=== PATIENT | male | born 1995 | race Caucasian/White ===

== ENCOUNTER 2017-08-09 02:47 | Emergency (ER) | payer OTHER ==
[~2017-08-09] VITALS: Ht 188 cm; Wt 68.2 kg
[2017-08-09 02:52] VITALS: BP 118/78; PULSE 80; RESP 19; O2SAT 96
[2017-08-09 03:08] VITALS: BP 118/78; PULSE 80; RESP 19; O2SAT 96
--- NOTE | 2017-08-09 03:57 | ED.REPORT ---
HPI-Psychiatric Illness Date of Service Aug 09, 2017 ED Provider: Pedro Pablo Pollack MD The pt is a 22 y/o male with reported hx of depression and bipolar disorder who presents to the ED requesting rehab for polysubstance use. The pt states he has been "self-medicating for depression and bipolar with cocaine, meth and a variety of other recreational drugs". The pt denies IV drug use. He last smoked heroin a week ago. Several years ago, he was at [facility] in [place]. He has not been in any treatment center since. He has never used Suboxone before. Nursing Notes Stated Complaint: MENTAL HEALTH Chief Complaint: Substance Abuse Nursing Notes Reviewed: Yes Allergies: Coded Allergies: No Known Allergies (Unverified , 08/09/17) General Time Seen by MD: 03:19 Chief Complaint Other (requesting rehab) Hx Obtained From: Patient Arrived By: Walk-in Onset Occurred: Just prior to arrival Symptom Duration: Since onset Severity: Current: No pain currently Severity: Maximum: No pain Recent Healthcare: No recent doctor visit Risk-Psychiatric Illness Suicide Risk Stratification Suicide Risk Factors - Adult: : Substance abuse RF Statements: Risk factors reviewed Past Medical History Past Medical History Depression Bipolar disorder Multiple drug use Past Surgical History none reported Smoking History Unknown if Ever Smoker Social History Drug Use: Cocaine, Meth, THC, Other (heroin) Ambulatory Status Independent Review of Systems Reports: requesting rehab for polysubstance use Complete sys rev & neg: except as marked. Physical Exam Initial Vital Signs Vital Signs (First) Date Time Temp Pulse Resp B/P Pulse Ox O2 Delivery O2 Flow Rate FiO2 08/09/17 02:52 80 19 118/78 96 Room Air Initial VS: Reviewed, Vital signs normal Head / Eyes: Atraumatic, Normocephalic Neck: Supple, Non-tender, Full range of motion Respiratory: Breath sounds normal, Clear to auscultation, No respiratory distress Cardiovascular: Regular rate & rhythm, Heart sounds normal, Intact distal pulses Abdomen / GI: Soft, Non-tender, No guarding, No rebound, No distention Extremities: Vascular intact, Neuro intact, No swelling, No tenderness Skin: Warm, Dry, No cyanosis General/Constitutional: Awake, Alert, Cooperative Distress / Hydration: Positive: Distress mild Calm and collected Not in celeste withdrawal. Neurologic: Oriented X3, Speech NL, No motor deficits, No sensory deficits Psychiatric: Affect NL, Mood NL, Not suicidal, Not homicidal, No hallucinations , Cognitive function NL Skin: Atraumatic, Color NL, No rash, Warm, Dry, Intact No track caro Interpretation & Diagnostics Lab Results Interpretation Test 08/09/17 04:15 Hold Urine Received (Received) Re-Eval/Medical Decision Med Decision/Clinical Course 22-year-old male with a vague mental health history presents for substance abuse detox and treatment. He has used multiple substances to attempt to self medicate his mental illness. He is currently detoxing from cocaine and methamphetamine. He has a bed [facility] at 11:00 [facility]. He will be sent with Zyprexa to use for any psychotic symptoms. It is his hope to get into inpatient treatment. There are no opiates in his drug screen today and he describes his opiate use as being very sporadic and doesn't feel that he will have problems with opiate withdrawal. His alcohol level is 0 and he describes his alcohol use is being very sporadic and doesn't feel that he will have problems with alcohol withdrawal either. Re-Evaluation/Progress #1: Time of Eval: 05:03 Re-Evaluation/Progress Note: As per the nurse, the pt is accepted at crisis center but a bed is not available until 11:00. Re-Evaluation/Progress #2: Time of Eval: 05:04 Re-Evaluation/Progress Note: Rechecked pt. Discussed lab results, diagnosis and plan to discharge to crisis. Pt understands and agrees with the plan. F/U instruction and RTER warning given. All questions addressed. Counseled Regarding: Diagnosis, Lab results, Need for follow-up, When/why to return to ED Discharge & Departure Shift Change Sign-Out Patient Care Transferred: Yes Discussed Complaint(s): Yes Laboratory Evaluation: Lab evaluation discussed Impression: Primary Impression: Substance abuse Additional Impression: Stimulant withdrawal )( Condition at Discharge: No danger to self, No danger to others, Clear for drug rehab Disposition: Home Discharge Condition All VS Reviewed: Yes Condition: Stable Patient Instructions: Methamphetamine Abuse (ED) Additional Instructions: [facility] directly [facility] at [facility]00 today. I have included a prescription for Zyprexa if you have problems with agitation or voices or paranoia. [facility] will assist you in further drug treatment, possibly as an inpatient. Care Transferred to: Dr. Dinh Care Transferred at: 06:00 Scribe Attestation Portions of this note were transcribed by Liv Lambert. I,, personally performed the history,physical exam and medical decision-making;I reviewed and confirmed the accuracy of the information in the transcribed note. Signed by Scott Langley. 08/09/17 Pedro Pablo Pollack MD Aug 09, 2017 03:57 Liv Lambert Aug 09, 2017 04:05
[2017-08-09] MEDS ORDERED: OLAN10TA32 PO (06:56)
== END 2017-08-09 10:15 | disposition home or self-care (01) ==
LOC: SED 02:47
DX: F19.10 Other psychoactive substance abuse, uncomplicated (principal); F15.20 Other stimulant dependence, uncomplicated; F31.9 Bipolar disorder, unspecified; F32.9 Major depressive disorder, single episode, unspecified

== ENCOUNTER 2017-08-21 20:43 | Emergency (ER) | payer OTHER ==
[~2017-08-21] VITALS: Ht 185.4 cm; Wt 68.2 kg
[~2017-08-21 20:43] MED LIST: OLAN10TA32 PO
[2017-08-21 20:45] VITALS: BP 116/73; PULSE 79; RESP 16; O2SAT 98
--- NOTE | 2017-08-21 20:58 | ED.REPORT ---
HPI-Psychiatric Illness Date of Service Aug 21, 2017 ED Provider: Esteban Samuel DO Pt is a 22 year old male with a history of depression, bipolar disorder, suicide attempts, and polysubstance use who presents to the ED complaining of intermittent suicidal ideations. Pt feels agitated, and he admits to methamphetamine use. He denies alcohol use. Pt is otherwise asymptomatic, denying chest pain, nausea, vomiting, diarrhea, homicidal ideations, and SOB. Pt presented to the ED on 08/09/17 requesting rehab for polysubstance use. He was diagnosed with substance abuse and stimulant withdrawal. The pt was discharged with plan to proceed to [facility]. Nursing Notes Stated Complaint: SUICIDAL IDEATION Chief Complaint: Psychiatric Complaint Nursing Notes Reviewed: Yes Allergies: Coded Allergies: No Known Allergies (Unverified , 08/09/17) Scheduled Olanzapine ODT (Olanzapine ODT) 10 Mg Tablet 10 MG PO DAILY General Time Seen by MD: 20:58 Chief Complaint Suicidal ideation Hx Obtained From: Patient Arrived By: Walk-in Onset Occurred: Onset unknown Symptom Duration: Since onset Severity: Current: No pain currently Severity: Maximum: No pain Recent Healthcare: Recent doctor visit Similar Sx Previous: Yes Risk-Psychiatric Illness Suicide Risk Stratification Suicide Risk Factors - Adult: : Previous attempt: Substance abuseNo: Alcohol use RF Statements: Risk factors reviewed Past Medical History Past Medical History Depression Bipolar disorder Multiple drug use Frequent suicide attempts Past Surgical History none reported Smoking History Unknown if Ever Smoker Social History Alcohol Use: Denies alcohol use Drug Use: Cocaine, Meth, THC, Other Ambulatory Status Independent Review of Systems Respiratory: Denies: Shortness of breath Cardiovascular: Denies: Chest pain GI: Denies: Nausea, Vomiting Psychiatric: Reports: Agitation, Suicidal ideation, Denies: Homicidal ideation Complete sys rev & neg: except as marked. Physical Exam Initial Vital Signs Vital Signs (First) Date Time Temp Pulse Resp B/P Pulse Ox O2 Delivery O2 Flow Rate FiO2 08/21/17 20:45 79 16 116/73 98 Room Air Initial VS: Reviewed Head / Eyes: Atraumatic, Normocephalic Neck: Supple, Full range of motion Respiratory: Breath sounds normal, Clear to auscultation, No respiratory distress Cardiovascular: Regular rate & rhythm, Heart sounds normal, Intact distal pulses Extremities: Vascular intact, Neuro intact General/Constitutional: Awake, Alert Neurologic: Oriented X3, CN II - XII intact Abnormal Thinking / Perception: Positive: Suicidal, no plan Agitated. Clenched his fist and looked me in the eye. Skin: Warm, Dry, Intact No signs of track caro Interpretation & Diagnostics Lab Results Interpretation Test 08/21/17 21:09 Urine Opiates Screen Negative Urine Methadone Screen Negative Urine Barbiturates Screen Negative Urine Amphetamines Screen Negative Urine Benzodiazepines Screen Negative Urine Cocaine Metabolite Screen Negative Urine Cannabinoids Screen Positive Re-Eval/Medical Decision Source of Hx: Old records Re-Evaluation/Progress : Time of Eval: 23:46 Re-Evaluation/Progress Note: Pt rechecked. He is calm, cool, and collected. He denies suicidal ideation and is feeling less agitated. Pt is pleased with the effect of Zyprexa. He has been on this in the past. The pt has also been previously on Gabapentin, and he will be placed back on it. Informed pt of plan for discharge. Pt understands and agrees with plan for discharge. F/U instructions and RTER warnings given. All questions addressed. All questions addressed. Consultation #1: Consulted With: workers compensation coordinator Call Returned at: 21:14 Comp Field Case Manager: Agrees with eval, Agrees with plan Note: Consulted with Donna Wilhelm. She reports that the pt had plans to get into [facility], but they did not have any beds available. However, there is a bed now currently available at [facility]. Consultation #2: Consulted With: workers compensation coordinator Call Returned at: 22:44 Comp Field Case Manager: Agrees with eval, Agrees with plan Note: Consulted with Donna Wilhelm. She states that the pt was on Ziprexa the last time he was at [facility] and they indicated that it seemed to help. They requested a loading dose. [facility]. Counseled Regarding: Diagnosis, Lab results, Need for follow-up, When/why to return to ED Discharge & Departure Impression: Primary Impression: Acute psychosis Discharge Condition All VS Reviewed: Yes Condition: Stable Patient Instructions: Bipolar Disorder (ED) Additional Instructions: [facility]ceed to [facility]. Start taking Zyprexa once daily and the gabapentin 3 times daily. Have blood counts performed in 2 weeks. A CBC is recommended. Follow up with a psychiatrist or primary care physician for refill of these medications and confirm that it is working for you. If you have any suicidal or homicidal ideations come back to the emergency department. Do not abuse any drugs or alcohol taking either his medications. Do not drive today secondary to receiving sedating medications. For tonight you may take 1 Ativan every 8 hours as needed for anxiety.. Begin the Zyprexa and gabapentin tomorrow. Call your primary care physician tomorrow morning to set up close follow-up. Referrals: [facility] (PCP) Elena Cardoza Attestation Portions of this note were transcribed by Amanda Blanchard. I, Dr. Samuel personally performed the history, physical exam and medical decision-making; I reviewed and confirmed the accuracy of the information in the transcribed note. Signed by : Scott Cheney, 08/21/17. copies to: Elena Cardoza Todd P DO Aug 21, 2017 20:58 Amanda Villeda Aug 21, 2017 21:25
[2017-08-21] MEDS ORDERED: OLANZapine Zydis ODT 5 mg Tablet PO ONE (21:00)
[2017-08-21] MEDS ORDERED: LORazepam 2 mg Tablet PO ONE (21:00)
[2017-08-22] MEDS ORDERED: _LORazepam 1 mg Tablet PO PRN (00:25)
== END 2017-08-22 00:53 | disposition home or self-care (01) ==
LOC: SED 20:43
DX: F23 Brief psychotic disorder (principal); F32.9 Major depressive disorder, single episode, unspecified; F31.9 Bipolar disorder, unspecified; F15.90 Other stimulant use, unspecified, uncomplicated; Z91.5 Personal history of self-harm
CPT/HCPCS: 81002; 82075; 99284; G0480